=== PATIENT | female | born 1990 | race Two or more races ===

== ENCOUNTER 2020-12-21 11:21 | Emergency (ER) | payer OTHER ==
[~2020-12-21] VITALS: Ht 162.6 cm; Wt 77.1 kg
== END 2020-12-21 17:26 | disposition home or self-care (01) ==
LOC: ER 11:21
DX: O21.0 Mild hyperemesis gravidarum (principal); O26.841 Uterine size-date discrepancy, first trimester; O26.851 Spotting complicating pregnancy, first trimester; Z34.81 Encounter for supervision of other normal pregnancy, first trimester

== ENCOUNTER 2021-03-02 13:00 | Outpatient (CLI) | payer OTHER | END 2021-03-02 14:12 | disposition home or self-care (01) | LOC: PRENATAL 13:00 | PROVIDERS: ATTEND Obstetrics & Gynecology Maternal & Fetal Medicine | DX: O35.0XX1 Maternal care for (suspected) central nervous system malformation in fetus, fetus 1 (principal); O35.3XX1 Maternal care for (suspected) damage to fetus from viral disease in mother, fetus 1; O98.512 Other viral diseases complicating pregnancy, second trimester; Z36.89 Encounter for other specified antenatal screening; Z3A.20 20 weeks gestation of pregnancy ==

== ENCOUNTER 2021-05-30 14:28 | Outpatient (CLI) | payer OTHER | END 2021-05-30 14:45 | disposition home or self-care (01) | LOC: PRENATAL 14:28 | PROVIDERS: ATTEND Obstetrics & Gynecology Maternal & Fetal Medicine | DX: O26.843 Uterine size-date discrepancy, third trimester (principal); O36.5931 Maternal care for other known or suspected poor fetal growth, third trimester, fetus 1; O36.8131 Decreased fetal movements, third trimester, fetus 1; Z36.89 Encounter for other specified antenatal screening; Z3A.31 31 weeks gestation of pregnancy ==

== ENCOUNTER 2021-06-18 16:04 | Outpatient (CLI) | payer OTHER | END 2021-06-18 17:40 | disposition home or self-care (01) | LOC: PRENATAL 16:04 | PROVIDERS: ATTEND Obstetrics & Gynecology Maternal & Fetal Medicine | DX: O26.843 Uterine size-date discrepancy, third trimester (principal); O36.5931 Maternal care for other known or suspected poor fetal growth, third trimester, fetus 1; O36.8131 Decreased fetal movements, third trimester, fetus 1; Z36.89 Encounter for other specified antenatal screening; Z3A.34 34 weeks gestation of pregnancy ==

== ENCOUNTER 2021-06-26 22:18 | Inpatient (IN) | payer OTHER ==
[~2021-06-26] VITALS: Ht 154.9 cm; Wt 86.2 kg
[2021-06-27] MEDS ORDERED: PEPCID AC20 MG (08:32)
[2021-06-27] MEDS ORDERED: METOCLOPRAMIDE H5 MG (08:32)
== END 2021-06-29 13:14 | disposition home or self-care (01) | DRG 807 ==
LOC: LDR 22:18 → OB/GYN 06-27 17:41
PROVIDERS: ADMIT Obstetrics & Gynecology; ATTEND Obstetrics & Gynecology
PROC: 10E0XZZ Delivery of Products of Conception, External Approach (ICD-10-PCS; principal; 2021-06-26)
PROC: 10907ZC Drainage of Amniotic Fluid, Therapeutic from Products of Conception, Via Natural or Artificial Opening (ICD-10-PCS; 2021-06-26)
PROC: 3E0P7VZ Introduction of Hormone into Female Reproductive, Via Natural or Artificial Opening (ICD-10-PCS; 2021-06-26)
PROC: 4A1HXFZ Monitoring of Products of Conception, Cardiac Rhythm, External Approach (ICD-10-PCS; 2021-06-26)
DX: O80 Encounter for full-term uncomplicated delivery (principal); Z37.0 Single live birth; Z3A.37 37 weeks gestation of pregnancy; Z20.822 Contact with and (suspected) exposure to COVID-19